=== PATIENT | male | born 1970 | race Caucasian/White ===

== ENCOUNTER → 2018-07-29 | Day surgery (SDC) | payer BC, OTHER ==
[2018-07-26 10:05] VITALS: BMI 25.5
[~2018-07-29] MED LIST: BUPIVACAINE HCL/PF (5 MG/ML) 30 ML VIAL IJ ONE; BUPIVACAINE HCL/PF 0.5% (5MG/ML) 10 ML VIAL ONE; DEXAMETHASONE SOD PHOSPHATE 4 MG/1 ML VIAL ONE; LACTATED RINGERS SOLUTION 1,000 ML IV SCH; LIDOCAINE HCL 1%, 10 MG/ML (20ML VIAL) ONE; LIDOCAINE HCL/PF 2% SDV 5ML VIAL ONE; METOPROLOL TARTRATE 5 MG/5 ML VIAL ONE; MIDAZOLAM HCL 2 MG/2 ML SINGLE DOSE VIAL ONE; ONDANSETRON 4 MG/2 ML VIAL IVPUSH PRN; PROMETHAZINE HCL 25 MG/1 ML VIAL IVPUSH PRN; PROPOFOL 20 ML ONE; SODIUM CHLORIDE 0.9% P/F 10 ML VIAL IJ ONE; ceFAZolin SODIUM 1 GM VIAL IVPB ONE; ceFAZolin SODIUM 1 GM VIAL ONE; oxyCODONE HCL 5 MG TABLET PO PRN
--- NOTE | 2018-07-29 10:26 | OP ---
Operative Note - Note: Operative Date: 07/29/18 Pre-Operative Diagnosis: elective infertility Operation: bilateral vasectomy Post-Operative Diagnosis: Same as Pre-op Surgeon: Valentin Forde Anesthesia: General Operative Report Dictated: Yes
[2018-07-29 11:29] VITALS: TEMP 97.8
[2018-07-29 12:34] VITALS: BP 105/55; PULSE 74
--- NOTE | 2018-07-29 12:39 | OP ---
DATE OF OPERATION: 07/29/2018 PREOPERATIVE DIAGNOSIS: Elective infertility. PREOPERATIVE DIAGNOSIS: Elective infertility. PROCEDURE: Bilateral vasectomy. ATTENDING SURGEON: Nilo Forde MD ANESTHESIA: General. OPERATION: As follows, the patient was brought into the operating room and placed in a supine position on the operating room table. Anesthesia and preoperative antibiotics were administered. The patient was then prepped and draped in a usual sterile manner. The left vasectomy was performed first. The left vas was palpated with the surgeon's finger. A towel clamp was placed around the vas. At this point, an incision was made overlying the vas. A clamp was placed into the wound, and blunt dissection was performed, and the vas was brought out through the skin wound. The vas was suture ligated proximally and distally with 2-0 Vicryl stitches. A 2-cm segment of the vas was sent for pathologic evaluation. After hemostasis was attained, at this point, the contents were returned into the left hemiscrotum, and an interrupted 2-0 chromic stitch was utilized for the skin wound. Marcaine was placed subcutaneously at the wound site for pain management. The same was done on the right side. Followup will be done in order to assure that the left and the right vas are confirmed with pathologic diagnosis. The patient will be discharged home following evaluation in the postanesthesia care unit. NILO WILLIS M.D. /[id number]
--- NOTE | 2018-07-30 14:34 | PATH ---
Surgical Pathology Report Patient Name: HODAN MARKS Med. Rec. #: [id number] /Age/Gender: 1970 (Age: 48) / M Account: [id number] Location: [facility] Taken: 07/29/2018 Received: 07/29/2018 Reported: 07/30/2018 Physicians: Valentin Forde Specimen(s) Received A: LEFT VAS DEFERENS B: RIGHT VAS DEFERENS Clinical History Encounter for sterilization Final Diagnosis A. VAS DEFERENS, LEFT, VASECTOMY: FULL LUMINAL PORTION OF UNREMARKABLE VAS DEFERENS B. VAS DEFERENS, RIGHT, VASECTOMY: FULL LUMINAL PORTION OF UNREMARKABLE VAS DEFERENS Electronically Signed Corina Wasserman M.D. Gross Description A. Received in formalin labeled "left vas deferens," is a 2 cm in length portion of vas deferens. The specimen is serially sectioned and entirely submitted in one cassette. B. Received in formalin labeled "right vas deferens," is a 2.5 cm in length portion of vas deferens. The specimen is serially sectioned and entirely submitted in one cassette. MLSZ/07/29/2018 sanml/07/29/2018
== END | disposition home or self-care (01) ==
LOC: JASU-SURG 08:53
PROVIDERS: ATTEND Urology
PROC: 0VTQ0ZZ Resection of Bilateral Vas Deferens, Open Approach (ICD-10-PCS; principal; 2018-07-29 10:00)
DX: Z30.2 Encounter for sterilization (principal)
CPT/HCPCS: 88302-TC; 94760